=== PATIENT | female | born 1990 | race African-American/Black ===

== ENCOUNTER 2021-08-26 15:42 | Emergency (ER) | payer OTHER ==
[~2021-08-26] VITALS: Ht 170.2 cm; Wt 79.8 kg
[2021-08-26 15:57] VITALS: BP 116/57
[2021-08-26 16:10] LABS: URINE BILIRUBIN NEGATIVE (Negative); URINE BLOOD NEGATIVE (Negative); URINE CLARITY CLEAR; URINE COLOR YELLOW; URINE GLUCOSE-RANDOM NEGATIVE (Negative); URINE KETONES NEGATIVE (Negative); URINE LEUKOCYTES NEGATIVE (Negative); URINE NITRITE NEGATIVE (Negative); URINE PROTEIN NEGATIVE (Negative); URINE UROBILINOGEN 0.2 E.U./dl (0.2-1.0)
[2021-08-26 16:37] LABS: ABSOLUTE EOSINOPHILS 0.1 thou/uL (0.0-0.7); ABSOLUTE LYMPHOCYTES 1.9 thou/uL (0.8-5.3); ABSOLUTE MONOCYTES 0.4 thou/uL (0.0-1.2); ABSOLUTE NEUTROPHILS 5.9 thou/uL (1.6-8.1); BASOPHILS 0.4 %; EOSINOPHILS 1.2 %; HEMOGLOBIN 12.9 gm/dL (12.0-15.0); LYMPHOCYTES 22.8 %; MCHC 33.1 g/dL (28.0-37.0); MCV 90.8 fL (80.0-100.0); MONOCYTES 4.6 %; MPV 7.8 fl. (7.2-11.1); NUCLEATED RBCS 0 /100WBC; PLATELET COUNT* 253 thou/uL (150-400); RBC 4.29 mil/uL (4.20-5.00); RDW-CV 12.7 % (10.5-14.5); WBC 8.4 thou/uL (4.0-11.0)
[2021-08-26 16:52] LABS: CALCIUM 8.8 mg/dL (8.5-10.1); CREATININE 0.8 mg/dL (0.6-1.3); POTASSIUM 3.5 mmol/L (3.5-5.1)
[2021-08-26 16:57] LABS: ALBUMIN 3.5 g/dL (3.4-5.0); TOTAL BILIRUBIN 0.4 mg/dL (<0.1-1.0); TOTAL PROTEIN 6.8 g/dL (6.4-8.2)
== END 2021-08-26 18:18 | disposition home or self-care (01) ==
LOC: M.ERS 15:42
PROVIDERS: Family Medicine; Physician Assistant
DX: R10.31 Right lower quadrant pain (principal)